=== PATIENT | female | born 1960 | race Caucasian/White ===

== ENCOUNTER 2018-12-27 06:25 | Inpatient (IN) ==
[2018-12-21 12:40] LABS: Appearance,Urine CLEAR; Bacteria,Urine 0 /hpf (0); Bilirubin,Urine NEG (NEG); Color,Urine YELLOW; Glucose,Urine (UA) NEGATIVE (NEG); Leukocyte Esterase,Urine 25 /uL (NEG); Mucus,Urine FEW /hpf (0); Protein,Urine NEG (NEG); Specific Gravity,Urine 1.019 (1.000-1.035); Urine Blood 0.03 mg/dL (<0.03); Urine Hyaline Cast 13 /lpf (0-2); Urine RBC 6 /hpf (0-1); Urine Squamous Epithelial Cell 1 /hpf (0-4); Urine WBC 3 /hpf (0-4)
[2018-12-21 14:12] LABS: Blood Urea Nitrogen 12 mg/dl (6-20)
[2018-12-21 14:14] LABS: Estimated Average Glucose(eAG) 128 mg/dL; Hemoglobin A1C 6.1 % HGB (4.0-6.0)
[2018-12-21 14:15] LABS: Basophils # (Auto) 0 K/mcL (0.0-0.3); Basophils % (Auto) 0.5 % (0.0-2.0); Eosinophils # (Auto) 0.1 K/mcL (0.0-0.7); Eosinophils % (Auto) 1.4 % (0.0-7.0); Granulocytes % (Auto) 51.7 % (38.0-78.0); Lymphocytes # (Auto) 3.2 K/mcL (1.5-4.8); Lymphocytes % (Auto) 39.4 % (15.5-49.0); Mean Cell Volume 93.3 fL (80.0-100.0); Monocytes # (Auto) 0.6 K/mcL (0.1-0.9); Platelet Count 247 K/mcL (140-440); RBC 4.73 M/mcL (4.00-5.20); Red Cell Distribution Width 13.4 % (11.5-14.5)
[~2018-12-27 06:25] MED LIST: 0.9 % SODIUM CHLORIDE 9 ML, KETOROLAC 30 MG, ROPIVACAINE HCL/PF 49.5 ML, EPINEPHrine 0.... IJ SCH; ACETAMINOPHEN 500 MG TABLET PO SCH; CELECOXIB 200 MG CAPSULE PO SCH; PREGABALIN 75 MG CAPSULE PO SCH; ceFAZolin 2 GM in DEXTROSE 5% IN WATER 50 ML IV SCH; oxyCODONE 10 MG TAB.ER.12H PO SCH
[2018-12-27] MEDS ORDERED: GENTAMICIN SULFATE 800 MG/20 ML VIAL IR ONE (08:23)
[2018-12-27] MEDS ORDERED: LIDOCAINE HCL/PF 100 MG/5 ML SYRINGE IV ONE (09:15)
[2018-12-27] MEDS ORDERED: MIDAZOLAM 5 MG/5 ML VIAL IV ONE (09:15)
[2018-12-27] MEDS ORDERED: ONDANSETRON 4 MG/2 ML VIAL IV ONE (09:15)
[2018-12-27] MEDS ORDERED: DEXAMETHASONE 10 MG/ML VIAL IV ONE (09:15)
[2018-12-27] MEDS ORDERED: ePHEDrine 50 MG/ML AMPUL IV ONE (09:15)
[2018-12-27] MEDS ORDERED: PROPOFOL 200 MG/20 ML VIAL IV ONE (09:15)
[2018-12-27] MEDS ORDERED: TRANEXAMIC ACID 1,000 MG/10 ML VIAL IV ONE (09:15)
[2018-12-27] MEDS ORDERED: NALOXONE HCL 0.4 MG/ML VIAL IV PRN (10:25)
[2018-12-27] MEDS ORDERED: KETOROLAC 15 MG/ML VIAL IV PRN (10:25)
[2018-12-27] MEDS ORDERED: LACTATED RINGERS 250 ML IV PRN (10:25)
[2018-12-27] MEDS ORDERED: BENZOCAINE/MENTHOL 1 LOZENGE PO PRN ×2 (10:25→10:34)
[2018-12-27] MEDS ORDERED: fentaNYL 100 MCG/2 ML VIAL IV PRN (10:25)
[2018-12-27] MEDS ORDERED: MEPERIDINE 25 MG/ML SYRINGE IV PRN (10:25)
[2018-12-27] MEDS ORDERED: PROMETHAZINE 25 MG/ML VIAL IV PRN (10:25)
[2018-12-27] MEDS ORDERED: HYDROmorphone 2 MG/ML VIAL IV PRN (10:25)
[2018-12-27] MEDS ORDERED: ONDANSETRON 4 MG/2 ML VIAL IV PRN ×2 (10:25→10:34)
[2018-12-27] MEDS ORDERED: diphenhydrAMINE 50 MG/ML VIAL IV PRN (10:25)
[2018-12-27] MEDS ORDERED: FLUMAZENIL 0.1 MG/ML ML IV PRN (10:25)
[2018-12-27] MEDS ORDERED: IPRATROPIUM/ALBUTEROL 3 ML AMPUL.NEB NEB PRN (10:25)
[2018-12-27] MEDS ORDERED: LACTATED RINGERS 1,000 ML IV SCH (10:30)
[2018-12-27] MEDS ORDERED: MAGNESIUM HYDROXIDE 30 ML ORAL.SUSP PO PRN (10:34)
[2018-12-27] MEDS ORDERED: POLYETHYLENE GLYCOL 3350 17 GM PACKET PO PRN (10:34)
[2018-12-27] MEDS ORDERED: FLEETS ADULT ENEMA PR PRN (10:34)
[2018-12-27] MEDS ORDERED: ACETAMINOPHEN 325 MG TABLET PO PRN (10:34)
[2018-12-27] MEDS ORDERED: TRANEXAMIC ACID 1,000 MG/10 ML VIAL IV SCH (10:34)
[2018-12-27] MEDS ORDERED: BISACODYL 10 MG SUPP.RECT PR PRN (10:34)
--- NOTE | 2018-12-27 10:34 | Brief Operative Note ---
Date of procedure: 12/27/18 Pre-op diagnosis: left hip djd ssever Post-op diagnosis: same Procedure: left frederic Grafts/Implants: Yes Anesthesia: GETA Surgeon: Ezio Guadalupe Composition Instructor: Tim Pinto Estimated blood loss (cc): 100 Specimens Removed/Pathology: none sent Condition: stable Disposition: PACU
--- NOTE | 2018-12-27 11:12 | XRay Report ---
HISTORY: Postop left hip arthroplasty FINDINGS: There is a well-positioned left total hip prosthesis. There is a 6 x 17 mm displaced bone fragment off the lateral border of the acetabular roof. No other fracture is present. IMPRESSION: small fracture along the lateral border of the acetabular roof, contiguous with the prosthesis Interpreted and Authenticated by: Billy Bahena 12/27/18
--- NOTE | 2018-12-27 11:34 | Operative Note ---
DATE OF OPERATION: 12/27/2018 PREOPERATIVE DIAGNOSIS: Left hip degenerative arthritis with avascular necrosis. POSTOPERATIVE DIAGNOSIS: Left hip degenerative arthritis with avascular necrosis. PROCEDURE: Left total hip arthroplasty using cementless components. SURGEON: Ezio Guadalupe M.D. CODING ASSISTANT: Tim Pinto PA-C. NOTE: The assistance of Tim Pinto was required because the superior incision technique for the total hip required special retraction and technique to be used to accomplish the surgery. BLOOD LOSS: Less than 100 mL. IMPLANTS PLACED: A size 3 cementless stem with a +7.5 neck length, ceramic head which was 36 mm in diameter. The cup was a 52 mm cup with a standard poly liner. DESCRIPTION OF PROCEDURE: We brought the patient to the operating room and put to sleep with general LMA anesthesia. Once asleep, we sterilely prepped and draped the left hip. We turned her into a right lateral position. The [place] positioner was used. The patient then had a superior approach performed. The assistance of Tim Pinto was required because of the technical nature of a superior approach. Once this was done, we then reamed up to the size 52. A 52 cup was placed with a 25 mm screw and standard poly. This was placed at 20 degrees anteversion and 40 degrees of inclination. Once done, we then prepared the femur, broaching up to a size 3. We took an x-ray to confirm this. The stem was slightly proud. This was reamed in the canal so it would sit lower. In doing so, we shortened the leg about 5 to 6 mm. We placed the +7.5 neck in, and this seemed to fit very nicely and was very stable. We irrigated thoroughly. We then tested stability which was very stable. We placed the final implants with a +7 neck length. We irrigated and closed the fascial layer with #1 Stratafix. We closed the skin with 2-0 Vicryl and adhesive closure. The capsule was closed with #5 Ethibond. [email or web address] Job ID: [id number] Doc ID: [id number] Ezio Guadalupe MD
[2018-12-27] MEDS: 0.45 % SODIUM CHLORIDE 1,000 ML IV SCH ×2 (11:40→23:23)
[2018-12-27] MEDS: HYDROmorphone 2 MG/ML VIAL IV PRN ×3 (11:52→18:39)
[2018-12-27] MEDS: 0.9 % SODIUM CHLORIDE 10 ML SYRINGE IV SCH ×2 (13:55→21:18)
[2018-12-27] MEDS: KETOROLAC 15 MG/ML VIAL IV PRN (15:30)
[2018-12-27] MEDS: oxyCODONE/APAP 5/325MG TABLET PO PRN ×2 (15:30→19:50)
[2018-12-27] MEDS: ceFAZolin 1 GM VIAL IV SCH (17:15)
[2018-12-27] MEDS: metFORMIN 500 MG TAB.XL.24H PO SCH (17:15)
[2018-12-27] MEDS ORDERED: SENNOSIDES 1 TABLET PO SCH (21:00)
[2018-12-27] MEDS ORDERED: TEMAZEPAM 15 MG CAPSULE PO PRN (21:00)
[2018-12-27] MEDS: DOCUSATE SODIUM 100 MG CAPSULE PO SCH (21:17)
[2018-12-27] MEDS: ASPIRIN 325 MG ENTERIC COATED TABLET PO SCH (21:17)
[2018-12-27] MEDS: NICOTINE 14 MG PATCH TOPICAL SCH (23:21)
[2018-12-28] MEDS: ceFAZolin 1 GM VIAL IV SCH (00:10)
[2018-12-28] MEDS: oxyCODONE/APAP 5/325MG TABLET PO PRN ×3 (00:10→10:14)
[2018-12-28] MEDS: KETOROLAC 15 MG/ML VIAL IV PRN ×2 (00:11→07:41)
[2018-12-28] MEDS: 0.9 % SODIUM CHLORIDE 10 ML SYRINGE IV SCH (05:28)
--- NOTE | 2018-12-28 07:32 | Discharge Summary ---
Ortho Discharge - [facility] - Patient Instructions Diet: Regular Diet Activity: activity as tolerated, weight bearing as tolerated Total Hip Protocol: Follow activity instructions as provided by Physical Therapy. Dressing Care: May shower in 2 days - Follow Up Plan Follow Up Appointments: Tim Pinto PA-C [Phys[facility] [employer]] - 01/11/19 8:40 am Disposition: Home, Self-Care Prognosis: Good Rehab Potential: Good I certify that the patient requires SNF services: No Overall status at discharge: patient is progressing back to baseline - Orders For Discharge Prescriptions: Aspirin [Ecotrin] 325 mg PO BID #60 tab.ec Docusate Sodium [Colace] 100 mg PO BID #60 cap oxyCODONE/APAP [Percocet 5-325 mg] 1 - 2 tab PO Q4HP PRN #75 tab PRN Reason: Pain Level 3-6
--- NOTE | 2018-12-28 07:34 | Orthopedic Progress Note ---
Subjective Patient information: Note initiated : 12/28/18 at 7:33 am Service Date, if different from initiated Date: [] Patient: Shalonda Quiros 58 y/o F admitted on 12/27/18 for Left Total Hip Arthroplasty with Direct Superior . Chief Complaint: [Pt is stable this morning on post operative day 1 without any significant concerns or complaints. Patients vital signs have remained stable. Patients dressing is dry and is grossly intact from a ne urovascular and motor standpoint. Patients 10 point ROS is otherwise negative. ] Objective Vital signs: Vital Signs Temp Pulse Resp BP BP Pulse Ox 12/28/18 07:12 98.1 F 72 17 110/60 99 12/28/18 03:47 97.3 F 75 18 107/51 96 12/27/18 23:25 98.3 F 77 16 123/56 97 12/27/18 19:27 98.8 F 81 16 129/63 97 12/27/18 17:49 98 12/27/18 16:24 97.7 F 89 16 120/64 94 12/27/18 16:00 98 12/27/18 14:00 97 12/27/18 13:24 76 115/66 95 12/27/18 13:09 78 116/63 94 12/27/18 12:54 74 121/67 93 12/27/18 12:39 76 122/66 97 12/27/18 12:24 84 125/79 93 12/27/18 12:15 97 12/27/18 12:09 77 115/63 95 12/27/18 11:54 77 121/62 94 12/27/18 11:39 76 124/67 95 12/27/18 11:30 97.0 F 84 15 128/61 98 12/27/18 11:15 97.0 F 84 11 L 128/57 96 12/27/18 11:00 97.0 F 90 16 136/59 100 12/27/18 10:55 85 10 L 133/65 100 12/27/18 10:50 90 13 132/63 100 12/27/18 10:45 97.0 F 95 H 11 L 134/64 100 12/27/18 10:43 96.6 F L 110 H 22 146/66 99 Intake and Output 12/27/18 12/28/18 12/28/18 21:59 05:59 13:59 Intake Total 1250 600 Output Total 2250 1350 250 Balance -1000 -750 -250 Intake: Oral 400 600 GI Tube Flush 850 Output: Void Amount 1650 1350 250 Stool 600 Other: Meal Dinner Percent of Meal Consumed 100% Feeding Ability Independent Urine Appearance Clear Clear Urine Color Pale Pale Urine Odor Normal Normal Weight 203 lb 8 oz Intake & Output: Intake & Output 12/27/18 12/28/18 12/28/18 21:59 05:59 13:59 Intake Total 1250 600 Output Total 2250 1350 250 Balance -1000 -750 -250 Weight 203 lb 8 oz Intake: Oral 400 600 GI Tube Flush 850 Output: Void Amount 1650 1350 250 Stool 600 Other: Meal Dinner Percent of Meal Consumed 100% Feeding Ability Independent Urine Appearance Clear Clear Urine Color Pale Pale Urine Odor Normal Normal Incision: Yes healing Incision clean and dry: Yes Dressing: Yes clean Weight bearing status: full Neurological exam IM: Yes motor sensory intact, Yes neurovascular intact Extremities exam IM: Yes Foot pink and warm, Yes neurovascular intact - Labs CBC & BMP: 12/28/18 04:19 12/21/18 11:17 Labs: Orthopedic Labs 12/21/18 11:17 PT 12.5 INR 0.9 APTT 27 12/28/18 12/21/18 04:19 11:17 Hgb 14.5 Hct 36.6 44.1 Assessment and Plan (1) Hx of total hip arthroplasty The patient has been educated regarding dressing care, Physical Therapy recommendations, home exercises, restrictions, and follow up appointments. The patient has had all necessary DME prescribed. The patient has remained relatively stable during their hospital course. Status: Acute
[2018-12-28] MEDS: DOCUSATE SODIUM 100 MG CAPSULE PO SCH (07:41)
[2018-12-28] MEDS: metFORMIN 500 MG TAB.XL.24H PO SCH (07:41)
[2018-12-28] MEDS: ASPIRIN 325 MG ENTERIC COATED TABLET PO SCH (07:41)
[2018-12-28] MEDS ORDERED: VARENICLINE TARTRATE 0.5 MG TABLET PO SCH (09:00)
[2018-12-28] MEDS: NICOTINE 14 MG PATCH TOPICAL SCH (09:52)
[2018-12-28] MEDS ORDERED: PNEUMOCOCCAL 23-VAL P-SAC VAC 0.5 ML SYRINGE IM ONE (10:00)
== END 2018-12-28 10:27 | disposition home or self-care (01) | DRG 470 ==
LOC: MEDSUR 06:25
PROVIDERS: ADMIT Orthopaedic Surgery; ATTEND Orthopaedic Surgery